=== PATIENT | female | born 1935 | race Caucasian/White ===

== ENCOUNTER → 2016-07-23 | Outpatient (CLI) | payer MEDICARE, OTHER ==
--- NOTE | 2016-07-23 17:02 | CR ---
EXAMINATION: Cervical spine HISTORY: Strain COMPARISON: None TECHNIQUE: AP and lateral views FINDINGS/IMPRESSION: The cervical spinal alignment appears normal. The vertebral body heights, preve rtebral soft tissue and disc spaces appear well-maintained. No fracture or acute osseous abnormality noted. Mild degenerative changes noted within the mid cervical spine.
== END ==
LOC: MW.CHFP 15:04
PROVIDERS: ATTEND Physician Assistant
DX: S16.1XXA Strain of muscle, fascia and tendon at neck level, initial encounter (principal)
CPT/HCPCS: 72040; 72040-26; G0463

== ENCOUNTER → 2016-09-20 | Outpatient (CLI) | payer MEDICARE, OTHER ==
[2016-09-20 09:34] LABS: CHLORIDE,CL 102 mmol/L (98-110); SODIUM,NA 140 mmol/L (136-146)
== END ==
LOC: MW.CHFP 08:51
PROVIDERS: ATTEND Emergency Medicine
DX: I10 Essential (primary) hypertension (principal); E78.00 Pure hypercholesterolemia, unspecified; D61.9 Aplastic anemia, unspecified; M25.519 Pain in unspecified shoulder; M54.2 Cervicalgia
CPT/HCPCS: 36415; 80048; 80061; 85025; 85652; 99214

== ENCOUNTER 2021-06-25 21:36 | Inpatient (IN) | payer MEDICARE, OTHER ==
[2021-06-25] MEDS ORDERED: Sodium Chloride 0.9% 1,000 ML IV ONE (21:37)
[2021-06-25] MEDS ORDERED: Sodium Chloride 0.9% 2.5 ML Syringe FLUSH PRN (21:37)
[2021-06-25] MEDS ORDERED: Sodium Chloride 0.9% 10 ML Syringe FLUSH PRN (21:37)
[2021-06-25] MEDS ORDERED: Diphtheria,Pertussis(Acell),Tetanus Vaccine 0.5 ML Syringe IM ONE (21:37)
[2021-06-25] MEDS ORDERED: Morphine 4 MG/ML VIAL IVPUSH ONE (21:41)
[2021-06-25] MEDS ORDERED: Iopamidol 755 MG/ML 500 ML Multipack Bottle IVPUSH STA (22:23)
[2021-06-25 22:37] LABS: CHLORIDE,CL 104 mmol/L (98-107); POTASSIUM,K 2.9 mmol/L (3.5-5.1)
[2021-06-25 22:40] LABS: BLOOD UREA NITROGEN,BUN 63 mg/dL (7.0-18.0); GLUCOSE RANDOM 128 mg/dL (74-106); LIPASE 29 U/L (73-393); SODIUM,NA 142 mmol/L (136-145)
[2021-06-25] MEDS ORDERED: Lactated Ringers 1,000 ML IV STA (22:46)
[2021-06-25] MEDS ORDERED: Potassium Chloride Riders 40 MEQ in Premix Bag 1 BAG IV ONE (22:47)
[2021-06-25] MEDS ORDERED: Cefepime 1 GM in Premix Bag 1 BAG IV ONE (23:06)
[2021-06-25 23:21] LABS: CORONAVIRUS COVID-19 NAA NEGATIVE (NEGATIVE); INFLUENZA A NAA NEGATIVE (NEGATIVE); INFLUENZA B NAA NEGATIVE (NEGATIVE)
[2021-06-26] MEDS ORDERED: Albuterol/Ipratropium 3.0-0.5 MG/3 ML Neb Soln NEB PRN (02:48)
[2021-06-26] MEDS: Morphine 2 MG/ML SYRINGE IVPUSH PRN ×5 (03:32→21:27)
[2021-06-26] MEDS: LORazepam 2 MG/ML SDV IVPUSH PRN ×2 (09:39→15:54)
[2021-06-26] MEDS: Lactated Ringers 1,000 ML IV SCH ×2 (09:48→17:50)
[2021-06-27] MEDS: Lactated Ringers 1,000 ML IV SCH ×3 (01:51→18:30)
[2021-06-27] MEDS: Morphine 2 MG/ML SYRINGE IVPUSH PRN ×5 (06:07→19:57)
[2021-06-27] MEDS: LORazepam 2 MG/ML SDV IVPUSH PRN ×2 (18:29→23:17)
[2021-06-28] MEDS: Morphine 2 MG/ML SYRINGE IVPUSH PRN ×2 (04:04→08:38)
[2021-06-28] MEDS: LORazepam 2 MG/ML SDV IVPUSH PRN (08:38)
[2021-06-28] MEDS: Morphine 10 MG/0.5 ML Oral Syringe PO PRN ×4 (11:57→23:49)
[2021-06-29] MEDS: Morphine 10 MG/0.5 ML Oral Syringe PO PRN ×5 (02:37→12:48)
[2021-06-29] MEDS: LORazepam 2 MG/ML SDV IVPUSH PRN ×4 (02:38→11:24)
== END 2021-06-29 13:30 | DRG 951 ==
LOC: MW.ED 21:36 → MW.MS 06-26 00:07
PROVIDERS: ADMIT Student in an Organized Health Care Education/Training Program; ATTEND Student in an Organized Health Care Education/Training Program
DX: Z51.5 Encounter for palliative care (principal); S32.599A Other specified fracture of unspecified pubis, initial encounter for closed fracture; S32.592A Other specified fracture of left pubis, initial encounter for closed fracture; W18.30XA Fall on same level, unspecified, initial encounter; I10 Essential (primary) hypertension; Z66 Do not resuscitate; Z88.5 Allergy status to narcotic agent; Z88.8 Allergy status to other drugs, medicaments and biological substances; W19.XXXA Unspecified fall, initial encounter; G51.0 Bell's palsy; Z96.659 Presence of unspecified artificial knee joint; Z79.899 Other long term (current) drug therapy; R77.8 Other specified abnormalities of plasma proteins; Z98.890 Other specified postprocedural states; Z98.49 Cataract extraction status, unspecified eye; E87.2 Acidosis; N17.9 Acute kidney failure, unspecified; S30.1XXA Contusion of abdominal wall, initial encounter; D72.829 Elevated white blood cell count, unspecified; Z20.822 Contact with and (suspected) exposure to COVID-19
CPT/HCPCS: 0240U; 36415; 51701; 51702; 70450; 71045; 71260; 72125; 72170; 74177; 80053; 82150; 82550; 83605; 83690; 84484; 85025; 85610; 86850; 86900; 86901; 87040; 90471; 90715; 93005; 96365; 96368; 96375; 99285; 72128; 72128-26; 72131; 72131-26; J0692; J2060; J2270; J3370; J3480; J7030; J7050; J7120; Q9967; U0002